=== PATIENT | female | born 1980 | race Caucasian/White ===

== ENCOUNTER 2020-10-17 22:19 | Emergency (ER) | payer SELFPAY ==
[~2020-10-17] VITALS: Ht 162.6 cm; Wt 68.0 kg
[2020-10-18] MEDS ORDERED: AMOX-CLAV 875-1 EAC2 PO (00:14)
[2020-10-18] MEDS ORDERED: IBU800 M1 PO (00:14)
== END 2020-10-18 00:47 | disposition home or self-care (01) ==
LOC: ER 22:19
DX: S01.85XA Open bite of other part of head, initial encounter (principal); S51.851A Open bite of right forearm, initial encounter; S50.11XA Contusion of right forearm, initial encounter; W54.0XXA Bitten by dog, initial encounter
CPT/HCPCS: 12015; 73090; 73130; 99283-25; A9270